=== PATIENT | female | born 1935 | race African-American/Black ===

== ENCOUNTER 2017-07-14 16:59 | Emergency (ER) | payer OTHER ==
[~2017-07-14] VITALS: Ht 162.6 cm; Wt 72.6 kg
== END 2017-07-14 21:01 | disposition home or self-care (01) ==
LOC: ER 16:59
DX: S00.33XA Contusion of nose, initial encounter (principal); W18.09XA Striking against other object with subsequent fall, initial encounter; Y93.89 Activity, other specified; Y92.018 Other place in single-family (private) house as the place of occurrence of the external cause; Y99.8 Other external cause status

== ENCOUNTER → 2017-07-14 | Emergency (ER) | payer OTHER | END | disposition left against medical advice (07) | LOC: ER 16:59 | DX: Z53.20 Procedure and treatment not carried out because of patient's decision for unspecified reasons (principal) ==

== ENCOUNTER 2017-08-24 02:13 | Inpatient (IN) | payer OTHER ==
[~2017-08-24] VITALS: Ht 162.6 cm; Wt 72.6 kg
[2017-08-30] MEDS ORDERED: ELIQUIS2.5 MG PO (11:02)
[2017-08-30] MEDS ORDERED: NORFLEX100MG PO (11:03)
[2017-08-30] MEDS ORDERED: NEURONTIN300 MG PO (11:03)
[2017-08-30] MEDS ORDERED: LEVOTHYROXINE75 MCG PO (11:04)
[2017-09-03] MEDS ORDERED: JANUVIA25 MG (18:32)
[2017-09-03] MEDS ORDERED: GLIMEPIRIDE2 MG (18:32)
[2017-09-03] MEDS ORDERED: PREDNISONE20 MG (19:27)
== END 2017-08-30 17:33 | disposition home or self-care (01) | DRG 603 ==
LOC: ER 02:13 → MEDJ 15:24 → SEC-K 15:24 → MEDJ 20:23
PROC: B54CZZZ Ultrasonography of Left Lower Extremity Veins (ICD-10-PCS; principal; 2017-08-24)
PROC: BR39ZZZ Magnetic Resonance Imaging (MRI) of Lumbar Spine (ICD-10-PCS; 2017-08-25)
PROC: BQ21ZZZ Computerized Tomography (CT Scan) of Left Hip (ICD-10-PCS; 2017-08-25)
PROC: BQ20ZZZ Computerized Tomography (CT Scan) of Right Hip (ICD-10-PCS; 2017-08-25)
DX: L03.116 Cellulitis of left lower limb (principal); I48.3 Typical atrial flutter; Z79.01 Long term (current) use of anticoagulants; E03.8 Other specified hypothyroidism; I25.10 Atherosclerotic heart disease of native coronary artery without angina pectoris; E11.9 Type 2 diabetes mellitus without complications; I48.0 Paroxysmal atrial fibrillation; I87.2 Venous insufficiency (chronic) (peripheral); M47.27 Other spondylosis with radiculopathy, lumbosacral region; M51.17 Intervertebral disc disorders with radiculopathy, lumbosacral region; Z91.81 History of falling; I83.92 Asymptomatic varicose veins of left lower extremity
CPT/HCPCS: 72148

== ENCOUNTER → 2017-09-03 | Emergency (ER) | payer OTHER ==
[~2017-09-03] VITALS: Ht 162.6 cm; Wt 70.3 kg
[~2017-09-03] MED LIST: ELIQUIS2.5 MG PO; GLIMEPIRIDE2 MG; JANUVIA25 MG; LEVOTHYROXINE75 MCG PO; NEURONTIN300 MG PO; NORFLEX100MG PO; PREDNISONE20 MG
== END | disposition left against medical advice (07) ==
LOC: ER 18:10
DX: E11.65 Type 2 diabetes mellitus with hyperglycemia (principal); R30.0 Dysuria; N39.0 Urinary tract infection, site not specified